=== PATIENT | female | born 2000 | race Caucasian/White ===

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

== ENCOUNTER 2018-10-23 16:27 | Inpatient (IN) ==
[2018-10-23] MEDS ORDERED: RINGER'S SOLUTION,LACTATED 1,000 ML IV ONE (16:47)
[2018-10-23] MEDS ORDERED: ONDANSETRON 4 MG TAB.RAPDIS PO PRN (16:47)
[2018-10-23] MEDS ORDERED: BUTORPHANOL TARTRATE 2 MG/ML VIAL IV PRN (16:47)
[2018-10-23] MEDS ORDERED: OXYTOCIN/DEXTROSE 5%-WATER 30 UNITS/500 ML BAG IV ONE (16:47)
[2018-10-23] MEDS ORDERED: DEXTROSE 5%-LACTATED RINGERS 1,000 ML IV PRN (16:47)
--- NOTE | 2018-10-23 17:34 | HP ---
Chief Complaint - Chief Complaint Date of Service: 10/23/18 Time of Service: 17:33 Chief Complaint: contractions History of Present Illness: 18 yo at 38 1/7 wks presents to L&D complaining of contractions of increasing frequency and intensity since this am. This complicated by anemia and migraines. Rh positive Rubella immune GBS negative Medical History (Last Reviewed 10/23/18 @ 17:40 by Jared Enamorado DO) Anemia (Acute) Onset Date: 07/31/18 w/ Influenza vaccination declined by patient (Acute) Onset Date: 05/01/18 Hx of wisdom tooth extraction (Chronic) Onset Date: ~2013 Kidney disease (Chronic) Onset Date: Unknown One kidney larger than the other. Chronic UTI. If she falls or gets hit in the lower back she has gross hematuria. Common migraine (Acute) Onset Date: 02/25/16 with aura Anxiety Onset Date: ~2015 Constipation (Resolved) Onset Date: 02/25/16 Depression Onset Date: ~2015 . Tx'd with Zoloft. Iron deficiency anemia (Resolved) Onset Date: 02/25/16 Low back pain (Resolved) Onset Date: 02/25/16 Low sodium levels (Resolved) Vertigo (Resolved) Onset Date: 02/25/16 Family History: Family History (Last Reviewed 10/23/18 @ 17:41 by Jared Enamorado DO) Grandmother Diabetes Type I CHF (congestive heart failure) Maternal Hypertension Seizures Father Heart disease Seizures Diabetes Grandmother Heart disease Seizures Diabetes Hypertension Social History: Preferred Language [place] Smoking Status Never smoker Abuse History No History of abuse Psych History No pertinent hx (Last Updated 10/23/18 @ 11:31 by Jared Enamorado DO) No Social History Section defined Review Of Systems (GEN) - Review of Systems Generalized/Overall Review: Present: No Symptoms Reported EENTM: Present: No Symptoms Reported Respiratory: Present: No Symptoms Reported Cardiac: Present: No Symptoms Reported Abdominal: Present: Diarrhea, Other - contractions Genitourinary: Present: Other - vaginal pressure Musculoskeletal: Present: No Symptoms Reported Neurological: Present: No Symptoms Reported Skin: Present: No Symptoms Reported Endocrine: Present: No Symptoms Reported Immunizations: IMMUNIZATION HX Immunizations Up to Date Yes History of Influenza Vaccine No Hx Pneumococcal Vaccination No Allergies/Adverse Reactions: Allergies Allergy/AdvReac Type Severity Reaction Status Date / Time No Known Allergies Allergy Verified 10/23/18 16:48 Home Medications: HOME MEDICATIONS vitamin,calcium,vhsyvudz-xonk-blzoe acid tablet 1 tab PO DAILY 03/07/18 [Last Taken 10/16/18] ferrous sulfate 325 mg (65 mg iron) tablet 325 mg PO DAILY #30 tab 08/08/18 [Last Taken 10/16/18] magnesium 200 mg tablet 400 mg PO DAILY tab 09/27/18 [Last Taken 10/16/18] Exam - Exam Vital Signs: Vital Signs - Last Taken Temp 36.9 C 10/23/18 17:15 Pulse 81 10/23/18 17:15 Resp 16 10/23/18 17:15 BP 107/63 10/23/18 17:15 Pulse Ox 98 10/23/18 17:15 Constitutional: Present: Alert, Oriented x3, Cooperative, No distress ENT Exam: Present: hearing grossly normal Breasts: Present: Exam deferred Respiratory: Present: lungs clear, no respiratory distress Cardiovascular/Chest: Present: normal peripheral pulses, regular rate, rhythm Abdomen: Present: soft, nontender, no rebound tenderness, other - gravid /Rectal: Present: Other - 5/70/-1 Extremity: Present: no pedal edema, no calf tenderness Skin Exam: Present: normal color, warm/dry, no cyanosis Neurologic: Present: alert, normal mood/affect, oriented x 3 Appearance: Present: appropriate appearance, appropriate insight Eye contact: Present: cooperative, good eye contact Thoughts: Present: normal thought pattern Diagnostic Studies: NST reactive Assessment/Plan - Assessment/Plan (1) Labor established Assessment: Admit for routine managment of labor. Problem: Acute (2) Anemia Problem: Acute Qualifiers: Anemia type: iron deficiency Iron deficiency anemia type: inadequate dietary iron intake Qualified Code(s): D50.8 - Other iron deficiency anemias (3) Kidney disease Problem: Chronic (4) Common migraine Problem: Chronic Qualifiers: Status migrainosus presence: without status migrainosus Intractability: not intractable Qualified Code(s): G43.009 - Migraine without aura, not intractable, without status migrainosus
--- NOTE | 2018-10-23 17:35 | PN ---
Progess Note - Interim Date: 10/23/18 Time: 17:34 Narrative: 10/23/18 17:34 Patient rating contractions as moderate. Vital signs stable. FHT: 140 baseline, [reassuring] Contractions q 2-4 min Cervix: 5/70/-1 Impression: Intrauterine at 38 1/7 weeks [in labor] Plan: [Continue present plan] 10/23/18 17:45
[2018-10-23 17:42] LABS: Cocaine Ur Negative (NEGATIVE); Urine Barbiturate Negative (NEGATIVE); Urine Benzodiazepines Negative (NEGATIVE); Urine Opiates Negative (NEGATIVE); Urine PCP Negative (NEGATIVE); Urine THC Negative (NEGATIVE)
--- NOTE | 2018-10-23 20:59 | PN ---
Progess Note - Interim Date: 10/23/18 Time: 20:56 Narrative: 10/23/18 20:57 Patient tolerating her contractions naturally Vital signs stable. FHT: 130 baseline, reassuring Contractions q 2-3 min Cervix: 5/60/-2, AROM-clear Impression: Intrauterine at 38 1/7 weeks with labor dystocia hopefully AROM will hasten delivery Plan: Continue present plan
[2018-10-24] MEDS ORDERED: IBUPROFEN 800 MG TABLET PO PRN (01:49)
[2018-10-24] MEDS ORDERED: GLYCERIN/WITCH HAZEL LEAF 40 APPL BOX TP PRN (01:49)
[2018-10-24] MEDS ORDERED: SENNOSIDES 8.6 MG TABLET PO PRN (01:49)
[2018-10-24] MEDS ORDERED: BISACODYL 10 MG SUPP.RECT RC PRN (01:49)
[2018-10-24] MEDS ORDERED: BENZOCAINE/MENTHOL 81 SPRAY CAN TP PRN (01:49)
[2018-10-24] MEDS ORDERED: oxyCODONE HCL/ACETAMINOPHEN 1 TAB TABLET PO PRN ×2 (01:49)
[2018-10-24] MEDS ORDERED: OXYTOCIN/DEXTROSE 5%-WATER 30 UNITS/500 ML BAG IV ONE (01:49)
[2018-10-24] MEDS ORDERED: HYDROCORTISONE 30 APPL TUBE TP PRN (01:49)
--- NOTE | 2018-10-24 01:49 | OR ---
Operative Report - Dictated Report Narrative: Spontaneous vaginal delivery of vigorously crying viable female at 0123 on 10/24/2018 with Apgars 8 and 8, weighing 3120 g in PROSPER position. Cord clamping delayed approximately 1 minute Placenta delivered complete, intact, with three vessel cord Estimated blood loss: less than 50 ml Anesthesia: None Lacerations: None History for Definition: * The number of deliveries resulting in a live the patient experienced prior to current hospitalization * The previous delivery of live twins or any live multiple gestation is considered one live event. *If primagravida or nulliparous is documented select zero for the number of previous live births. Live Events: 1
[2018-10-24] MEDS: FERROUS SULFATE 325 MG TABLET PO SCH (08:19)
[2018-10-24] MEDS: DOCUSATE SODIUM 100 MG CAPSULE PO SCH ×2 (08:19→21:22)
[2018-10-24] MEDS: PRENATAL VITS96/IRON FUM/FOLIC 1 TAB TABLET PO SCH (08:20)
--- NOTE | 2018-10-25 07:40 | PN ---
Subjective - Date and Time Seen Date: 10/25/18 Time: 07:39 Objective - Vitals Vitals: Last Vital Signs Temp 36.6 C 10/24/18 12:08 Pulse 85 10/25/18 00:57 Resp 16 10/25/18 00:57 BP 100/55 10/25/18 00:57 Pulse Ox 98 10/25/18 00:57 Patient denies complaints. Lochia wnl Abdomen - soft, nontender Uterus - firm, at umbilicus - 1 No calf tenderness Impression: day #1 - s/p spontaneous vaginal delivery. Plan: Continue routine care Assessment/Plan - Problems/Diagnosis (1) Labor established Problem: Acute (2) Anemia Problem: Acute Qualifiers: Anemia type: iron deficiency Iron deficiency anemia type: inadequate dietary iron intake Qualified Code(s): D50.8 - Other iron deficiency anemias (3) Kidney disease Problem: Chronic (4) Common migraine Problem: Chronic Qualifiers: Status migrainosus presence: without status migrainosus Intractability: not intractable Qualified Code(s): G43.009 - Migraine without aura, not intractable, without status migrainosus
[2018-10-25] MEDS: FERROUS SULFATE 325 MG TABLET PO SCH (09:13)
[2018-10-25] MEDS: PRENATAL VITS96/IRON FUM/FOLIC 1 TAB TABLET PO SCH (09:13)
[2018-10-25] MEDS: DOCUSATE SODIUM 100 MG CAPSULE PO SCH ×2 (09:13→21:56)
[2018-10-25 11:35] LABS: Hematocrit 32.7 % (37.0-47.0); Hemoglobin 10.6 gm/dL (12.5-16.0); Mean Cell Volume 98.5 fl (78-100); Mean Corpuscular Hemoglobin 31.9 pg (27-31); Mean Corpuscular Hgb Conc 32.4 g/dl (32-36); Mean Platelet Volume 10.7 fl (8-12.5); Neutrophil # 8.6 K/mm3 (1.3-6.0); Neutrophil % 73.7 % (42-75.0); Platelet Count 137 K/mm3 (150-450); Red Blood Count 3.32 M/mm3 (4.2-5.4); Red Cell Distribution Width 13.2 % (11.5-14.0); White Blood Count 11.7 K/mm3 (4.0-10.5)
[2018-10-25] MEDS ORDERED: MISOPROSTOL 200 MCG TABLET PO SCH (13:15)
[2018-10-25] MEDS: MISOPROSTOL 100 MCG TABLET PO SCH ×2 (13:40→21:56)
[2018-10-26] MEDS: PRENATAL VITS96/IRON FUM/FOLIC 1 TAB TABLET PO SCH (09:29)
[2018-10-26] MEDS: DOCUSATE SODIUM 100 MG CAPSULE PO SCH (09:29)
[2018-10-26] MEDS: FERROUS SULFATE 325 MG TABLET PO SCH (09:29)
--- NOTE | 2018-10-26 13:42 | PN ---
Subjective - Date and Time Seen Date: 10/26/18 Time: 13:40 Objective - Vitals Vitals: Last Vital Signs Temp 36.6 C 10/26/18 06:50 Pulse 86 10/26/18 06:50 Resp 18 10/26/18 06:50 BP 114/66 10/26/18 06:50 Pulse Ox 97 10/26/18 06:50 Patient denies complaints. Passed 2 large clots yesterday, minimal bleeding since. Responded well to cytotec. Lochia wnl Abdomen - soft, nontender Uterus - firm, at umbilicus - 3 No calf tenderness Impression: day #2 - s/p spontaneous vaginal delivery. Plan: Routine discharge instructions. Call for heavy vaginal bleeding. Assessment/Plan - Problems/Diagnosis (1) Labor established Problem: Acute (2) Anemia Problem: Acute Qualifiers: Anemia type: iron deficiency Iron deficiency anemia type: inadequate dietary iron intake Qualified Code(s): D50.8 - Other iron deficiency anemias (3) Kidney disease Problem: Chronic (4) Common migraine Problem: Chronic Qualifiers: Status migrainosus presence: without status migrainosus Intractability: not intractable Qualified Code(s): G43.009 - Migraine without aura, not intractable, without status migrainosus
[2018-10-26 13:51] VITALS: BP 108/75
== END 2018-10-26 14:05 | disposition home or self-care (01) | DRG 807 ==
LOC: OBCLINIC 16:27 → OB 16:29
PROVIDERS: ADMIT Obstetrics & Gynecology; ATTEND Obstetrics & Gynecology
CPT/HCPCS: 36415; 59025; 80307; 85025

== ENCOUNTER 2020-01-16 00:01 | Inpatient (IN) ==
[2020-01-16] MEDS ORDERED: ONDANSETRON 4 MG TAB.RAPDIS PO PRN (00:18)
[2020-01-16] MEDS ORDERED: OXYTOCIN/DEXTROSE 5%-WATER 30 UNITS/500 ML BAG IV ONE ×2 (00:18→06:22)
[2020-01-16] MEDS ORDERED: RINGER'S SOLUTION,LACTATED 1,000 ML IV ONE (00:18)
[2020-01-16] MEDS ORDERED: DEXTROSE 5%-LACTATED RINGERS 1,000 ML IV PRN (00:18)
--- NOTE | 2020-01-16 06:15 | OR ---
Operative Report - Dictated Report Narrative: Spontaneous vaginal delivery of vigorously crying viable male at 0543 on 01/16/2020 with Apgars 8 and 9, weighing 2831 g. Cord clamping delayed approximately 1 minute Placenta delivered complete, intact, with three vessel cord Estimated blood loss: Less than 50 ml Anesthesia: None Lacerations: None
--- NOTE | 2020-01-16 06:15 | HP ---
Chief Complaint - Chief Complaint Date of Service: 01/16/20 Time of Service: 06:00 Chief Complaint: IOL History of Present Illness: 19 yo at 39 1/7 weeks presents for induction of labor for SGA - trending IUGR fetus. This complicated by anemia, oligohydramnios, h/o anxiety/depression, migraines, and SGA - trending IUGR fetus. Rh positive Rubella immune GBS negative Medical History (Last Reviewed 01/16/20 @ 06:02 by Jared Enamorado DO) Kidney disease (Chronic) Onset Date: Unknown One kidney larger than the other. Chronic UTI. If she falls or gets hit in the lower back she has gross hematuria. Common migraine (Chronic) Onset Date: 02/25/16 with aura Oligohydramnios antepartum Onset Date: 01/07/20 Anemia (Resolved) Onset Date: 07/31/18 w/ Anxiety Onset Date: ~2015 Depression Onset Date: ~2015 . Tx'd with Zoloft. Influenza vaccination declined by patient (Resolved) Onset Date: 05/01/18 Low back pain (Resolved) Onset Date: 02/25/16 Surgical History: Surgical History (Last Reviewed 01/16/20 @ 06:02 by Jared Enamorado DO) Hx of wisdom tooth extraction (Resolved) Onset Date: ~2013 Family History: Family History (Last Reviewed 01/16/20 @ 06:02 by Jared Enamorado DO) Grandmother Diabetes Type I CHF (congestive heart failure) Maternal Hypertension Seizures Father Heart disease Seizures Diabetes Grandmother Heart disease Seizures Diabetes Hypertension Mother Alive and well Social History: (Last Reviewed 01/16/20 @ 06:02 by Jared Enamorado DO) Social History: adopted: No skilled nursing: No Marital status: household members: spouse, children number of children: 1 current occupational status: unemployed Service: No Tobacco: Smoking Status: Never smoker Alcohol: alcohol intake: never Substance Use: substance use type: does not use Dietary Habits: caffeine: No daily servings of milk/calcium: 0-1 Pets: pets and animals: dog(s) Exercise: frequency: does not exercise Mariaelena/Episcopalian: special mariaelena needs: No Personal Safety: do you feel safe at home: Yes victim of physical abuse: No victim of emotional abuse: No victim of sexual abuse: No Review Of Systems (GEN) - Review of Systems Generalized/Overall Review: Present: No Symptoms Reported EENTM: Present: No Symptoms Reported Respiratory: Present: No Symptoms Reported Cardiac: Present: No Symptoms Reported Abdominal: Present: No Symptoms Reported Genitourinary: Present: No Symptoms Reported Musculoskeletal: Present: No Symptoms Reported Neurological: Present: No Symptoms Reported Skin: Present: No Symptoms Reported Endocrine: Present: No Symptoms Reported Immunizations: IMMUNIZATION HX Immunizations Up to Date Yes History of Influenza Vaccine No Hx Pneumococcal Vaccination No Allergies/Adverse Reactions: Allergies Allergy/AdvReac Type Severity Reaction Status Date / Time No Known Allergies Allergy Verified 01/16/20 00:19 Home Medications: HOME MEDICATIONS prenat.vits,boo,wcx-ccrg-dkgbm 1 tab PO DAILY 03/07/18 [Last Taken 01/13/20 08:00] acetaminophen 500 mg tablet 500 mg PO Q6H PRN 11/20/18 [Last Taken Unknown] ferrous sulfate 325 mg (65 mg iron) tablet 325 mg PO BID #30 tab 10/24/19 [Last Taken Unknown] magnesium 200 mg tablet 200 mg PO DAILY 11/19/19 [Last Taken Unknown] Exam - Exam Vital Signs: Vital Signs - Last Taken Temp 36.9 C 01/16/20 00:26 Pulse 78 01/16/20 05:59 Resp 18 01/16/20 05:59 BP 111/75 01/16/20 05:59 Pulse Ox 100 01/16/20 05:59 Constitutional: Present: Alert, Oriented x3, Cooperative ENT Exam: Present: hearing grossly normal Neck: Present: non-tender. Absent: thyromegaly Breasts: Present: Exam deferred Respiratory: Present: lungs clear, no respiratory distress Cardiovascular/Chest: Present: regular rate, rhythm, no edema Abdomen: Present: soft, nontender, no rebound tenderness, other - gravid /Rectal: Present: Other - Cervix - Extremity: Present: no pedal edema, no calf tenderness Skin Exam: Present: normal color - 3-4/60/-2, warm/dry, no cyanosis Lymphatic: Present: no adenopathy Neurologic: Present: alert, normal mood/affect, oriented x 3 Appearance: Present: appropriate appearance, appropriate insight Eye contact: Present: cooperative, good eye contact Thoughts: Present: normal thought pattern, normal mood /affect Assessment/Plan - Assessment/Plan (1) Encounter for induction of labor Assessment: Admit for pitocin induction of labor. Epidural PRN. Problem: Acute (2) Small for gestational age fetus Problem: Acute (3) Anemia Problem: Acute Qualifiers: Anemia type: iron deficiency Iron deficiency anemia type: inadequate dietary iron intake Qualified Code(s): D50.8 - Other iron deficiency anemias (4) Anxiety and depression Problem: Acute
--- NOTE | 2020-01-16 06:16 | PN ---
Progess Note - Interim Date: 01/16/20 Time: 06:15 History for MU History for MU Definition: * The number of deliveries resulting in a live the patient experienced prior to current hospitalization * The previous delivery of live twins or any live multiple gestation is considered one live event. *If primagravida or nulliparous is documented select zero for the number of previous live births. Live Events: Live Events: 2
[2020-01-16] MEDS ORDERED: oxyCODONE HCL/ACETAMINOPHEN 1 TAB TABLET PO PRN (06:22)
[2020-01-16] MEDS ORDERED: BISACODYL 10 MG SUPP.RECT RC PRN (06:22)
[2020-01-16] MEDS ORDERED: IBUPROFEN 800 MG TABLET PO PRN ×2 (06:22)
[2020-01-16] MEDS ORDERED: HYDROCORTISONE 30 APPL TUBE TP PRN (06:22)
[2020-01-16] MEDS ORDERED: GLYCERIN/WITCH HAZEL LEAF 40 APPL BOX TP PRN (06:22)
[2020-01-16] MEDS ORDERED: SENNOSIDES 8.6 MG TABLET PO PRN (06:22)
[2020-01-16] MEDS ORDERED: BENZOCAINE/MENTHOL 81 SPRAY CAN TP PRN (06:22)
[2020-01-16] MEDS ORDERED: ACETAMINOPHEN 500 MG TABLET PO PRN (06:23)
[2020-01-16] MEDS: FERROUS SULFATE 325 MG TABLET PO SCH ×2 (10:34→21:15)
[2020-01-16] MEDS: PRENATAL VITS96/IRON FUM/FOLIC 1 TAB TABLET PO SCH (10:34)
[2020-01-16] MEDS: DOCUSATE SODIUM 100 MG CAPSULE PO SCH ×2 (10:34→20:55)
[2020-01-16] MEDS: Magnesium 200 MG PO SCH (10:34)
--- NOTE | 2020-01-17 06:17 | PN ---
Subjective - Date and Time Seen Date: 01/17/20 Time: 06:16 Objective - Vitals Vitals: Last Vital Signs Temp 37.1 C 01/17/20 01:00 Pulse 75 01/17/20 01:00 Resp 18 01/17/20 01:00 BP 122/74 01/17/20 01:00 Pulse Ox 97 01/17/20 01:00 Patient denies complaints. Breast-feeding well Lochia wnl abdomen - soft, nontender Uterus -firm, at umbilicus - 1 no calf tenderness Impression: day #1 - s/p spontaneous vaginal delivery. Plan: Continue routine care Assessment/Plan - Problems/Diagnosis (1) Encounter for induction of labor Problem: Acute (2) Small for gestational age fetus Problem: Acute (3) Anemia Problem: Acute Qualifiers: Anemia type: iron deficiency Iron deficiency anemia type: inadequate dietary iron intake Qualified Code(s): D50.8 - Other iron deficiency anemias (4) Anxiety and depression Problem: Acute
[2020-01-17] MEDS: FERROUS SULFATE 325 MG TABLET PO SCH ×2 (09:04→21:54)
[2020-01-17] MEDS: DOCUSATE SODIUM 100 MG CAPSULE PO SCH ×2 (09:04→21:54)
[2020-01-17] MEDS: PRENATAL VITS96/IRON FUM/FOLIC 1 TAB TABLET PO SCH (09:05)
[2020-01-17] MEDS: Magnesium 200 MG PO SCH (09:05)
[2020-01-18 08:11] VITALS: BP 118/81
--- NOTE | 2020-01-18 12:38 | PN ---
Subjective - Date and Time Seen Date: 01/18/20 Time: 12:38 Objective - Vitals Vitals: Last Vital Signs Temp 36.6 C 01/18/20 08:06 Pulse 75 01/18/20 08:06 Resp 18 01/18/20 08:06 BP 118/81 01/18/20 08:06 Pulse Ox 97 01/18/20 08:06 Patient denies complaints. Breast-feeding Lochia wnl abdomen - soft, nontender Uterus -firm, at umbilicus - 2 no calf tenderness Impression: day #2 - s/p spontaneous vaginal delivery. Plan: Routine discharge instructions Assessment/Plan - Problems/Diagnosis (1) Encounter for induction of labor Problem: Acute (2) Small for gestational age fetus Problem: Acute (3) Anemia Problem: Acute Qualifiers: Anemia type: iron deficiency Iron deficiency anemia type: inadequate dietary iron intake Qualified Code(s): D50.8 - Other iron deficiency anemias (4) Anxiety and depression Problem: Acute
== END 2020-01-18 13:00 | disposition home or self-care (01) | DRG 806 ==
LOC: OB 00:01 → MS 01-17 13:09
PROVIDERS: ADMIT Obstetrics & Gynecology; ATTEND Obstetrics & Gynecology
CPT/HCPCS: 59025; 88307; 88888